=== PATIENT | male | born 1955 | race Caucasian/White ===

== ENCOUNTER 2019-05-02 07:33 | Inpatient (IN) | payer OTHER ==
[~2019-05-02] VITALS: Ht 188 cm; Wt 111.1 kg
[2019-05-02] VITALS (31 sets, daily range): BP systolic 94–189; BP diastolic 49–102
[~2019-05-02 07:33] MED LIST: ALLOPURINOL 10100 M1 PO; ASPIR 8181 MG PO; ATORVASTATIN CA40 MG PO; BRILINTA90 MG PO; MICARDIS40 MG PO; NAPROSYN500 MG PO; NORCO 5-325 TA1 EACH PO; PROTONIX40 M1 PO; TELMISARTAN-HC1 EACH PO
[2019-05-02 07:46] LABS: ABSOLUTE BASOPHILS 0.1 thou/uL (0.0-0.2); ABSOLUTE EOSINOPHILS 0.4 thou/uL (0.0-0.7); ABSOLUTE LYMPHOCYTES 2.1 thou/uL (0.8-5.3); ABSOLUTE MONOCYTES 0.8 thou/uL (0.0-1.2); ABSOLUTE NEUTROPHILS 3.5 thou/uL (1.6-8.1); BASOPHILS 1.2 %; EOSINOPHILS 5.1 %; HEMATOCRIT 42.1 % (42.0-52.0); HEMOGLOBIN 14.3 gm/dL (14.0-18.0); LYMPHOCYTES 30.9 %; MCH 31.3 pg (26.0-34.0); MONOCYTES 12.1 %; MPV 9.1 fl. (7.2-11.1); NUCLEATED RBCS 0 /100WBC; PLATELET COUNT* 179 thou/uL (150-400); POLYS 50.7 %; RBC 4.57 mil/uL (4.50-6.00); RDW-CV 13.5 % (10.5-14.5); WBC 6.9 thou/uL (4.0-11.0)
[2019-05-02 07:55] LABS: CALCIUM 8.8 mg/dL (8.5-10.1); CREATININE 1.2 mg/dL (0.6-1.3); POTASSIUM 4.1 mmol/L (3.5-5.1)
[2019-05-02 07:57] LABS: APTT 25.5 Seconds (25.0-31.3); PROTIME 10.5 Seconds (9.20-11.50)
[2019-05-02 08:04] LABS: TROPONIN-I LEVEL 0.33 ng/mL (<0.06)
--- NOTE | 2019-05-02 12:30 | NUR ---
RECEIVED PT FROM RETAIL SALES MANAGER AT 0930. PT SINUS OSORIO HEART RATE 47-[address] NOTIFIED. SYSTOLIC BP 90'S-105. NOTIFIED. RECEIVED ORDER TO INFUSE NS AT 200ML/HR IS SYSTOLIC <90. PT HAS NOT COMPLAINTS AT THIS TIME. A/O X'S 4. ADMISSION ASSESSMENT COMPLETE. PT'S SPOUSE RECEIVED PRINTED CARDIAC EDUCATION FROM RETAIL SALES MANAGER. POST CATH PROCEDURES INSTRUCTED TO PATIENT AND SPOUSE. PT TOLERATING LIQUIDS. TOLERATED HEART HEALTHY BREAKFAST. RECEIVED ORDERS TO INFUSE AGROSTAT FROM RETAIL SALES MANAGER UNTIL BAG IS EMPTY.
[2019-05-02] MEDS ORDERED: LIPITOR40 MG PO (13:18)
--- NOTE | 2019-05-02 14:26 | NUR ---
PT BLADDER SCANNED AND 535ML. PT STOOD UP TO VOID 2 TIMES AND UNABLE TO VOID. WATER TURNED ON, UNABLE TO VOID. PT STATES HE DID TAKE FLOMAX LAST NIGHT. CALLED, RECEIVED ORDER FOR UROLOGY CONSULT.
[2019-05-02] MEDS ORDERED: FLOMAX0.4 MG PO (15:01)
[2019-05-02] MEDS ORDERED: LOSARTAN-HCTZ1 EAC1 PO (15:05)
[2019-05-02] MEDS ORDERED: CRESTOR20 MG PO (15:06)
[2019-05-02] MEDS ORDERED: GARLIC PO (15:07)
[2019-05-02] MEDS ORDERED: VITAMIN E400 UNIT PO (15:08)
[2019-05-02] MEDS ORDERED: FISH OIL 1,001000 M2 PO (15:09)
--- NOTE | 2019-05-02 17:33 | CARD ---
[address] [address] CARDIAC CATH REPORT Name: LAI VILLEGAS Room: [address] IN .R.#: [id number] Admission: 05/02/19 Attend Phys: Casimiro Colunga MD, F Discharge: Date of : 53 Report #: [id number] THIS REPORT FOR: //name// APPROVED REPORT Study performed: 05/02/2019 07:49:16 Patient Details Patient Status: ED Room #: The patient is a 63 year-old male Event Personnel Casimiro Colunga Multicultural Internship, Mary Diamond RN Director School Of Nursing, Roger Moralez SURFACE MOUNT TECHNOLOGY OPERATOR Scrub, Teresa Josue RN Monitor, Sharon Brennan RN Director School Of Nursing Procedures Performed Art Access - R femoral artery* Left Heart Cath w/or w/o Coronaries [id number] [facility] Place w/wo Plasty Single RCA [id number] Indication STEMI (>0 to less than or equal to 6 hours), Chest pain Risk Factors Arterial Hypertension, Hypercholesterolemia Previous Procedures/Diagnoses Previous PCI Admission/Lab Medications/Medications given during procedure Glycoprotein IllbIlla Inhibitors, Heparin Unfract. Procedure Narrative The patient was brought emergently to the Cardiac Catheterization Laboratory and was prepped and draped in a sterile manner. The right femoral was infiltrated with 2% Lidocaine subcutaneous anesthesia. A 6fr Ultimum sheath was inserted into the right femoral artery. Coronary angiography was performed using coronary diagnostic catheters. The right coronary system was accessed and visualized with a Diagnostic catheter. The left coronary system was accessed and visualized with a Diagnostic catheter. The left ventricle was accessed and visualized with a Diagnostic catheter. Left ventricular/Aortic Valve gradient assessed via catheter pullback. Left ventriculogram was performed in SC[place] [address] CARDIAC CATH REPORT Name: LAI VILLEGAS Room: [address] IN [facility]#: [id number] Admission: 05/02/19 Attend Phys: Casimiro Colugna MD, F Discharge: Date of : 53 Report #: [id number] was deployed with a 6 Fr Angioseal STS 6Fr. The patient tolerated the procedure well and there were no complications associated with the procedure. There was no hematoma. Intraoperative Conscious Sedation Sedation start time: 8:31 Case end Time: 9:08 Fentanyl 25 mcg Fluoro Time: 8.0 minutes Dose: DAP 370559 cGycm2 1852 mGy Contrast Type and Amount: Visipaque 180 ml Coronary Angiography The patient's coronary anatomy is right dominant. Diagnostic Cath Left Main 0% stenosis LAD long stent in mid lad with 0% stenosis. 60% stenosis noted in distal lad. Diagonal 2 50% mid stenosis Circumflex 70% mid stenosis noted Right Coronary 30% proximal stenosis. 100% acutely occluded just beyond acute margin R PDA small vessel with 90% proximal stenosis noted Left Ventriculography The left ventricular ejection fraction is estimated to be 45-50%. Left ventricular wall motion abnormalities are present. There is 1+ mitral insufficiency. mild inferior wall hypokinesis noted Hemodynamics The aortic pressure is 149/76 mmHg with a mean of 92 mmHg. The left ventricular pressure is 89/15 mmHg with a mean of mmHg. The left ventricular end diastolic pressure is 25 mmHg. There was no gradient across the aortic valve upon pullback. Pullback from the left ventricle to the aorta revealed no gradient across the aortic valve. PCI Technique Lesion Anticoagulation was achieved with Heparin. bolus of iv aggrastat given Percutaneous coronary intervention was performed on the mid right coronary artery. The lesion stenosis prior to intervention was 100% with PITA 0 flow. A 6F JR 4.0 Guide Catheter was used to engage the rca ostium. A Choice PT Wire 182cm Interventional Guidewire was used [place] [address] CARDIAC CATH REPORT Name: LAI VILLEGAS Room: [address] IN [facility]#: [id number] Admission: 05/02/19 Attend Phys: Casimiro Colunga MD, F Discharge: Date of : 53 Report #: [id number] BALLOON DILATION A Balloon catheter Trek RX 2.5 X 8 was inserted and inflated up to 8.00atm for 14seconds. Repeat angiography revealed the following post-dilatation results: 60% stenosis. Additional Inflation: 16.00atm for 12seconds. Additional Inflation: 18.00atm for 9seconds. Inability to cross occlusion with neither a BMW nor prowater flex wire appearred to be secondary to large clot burden and tortuosity. STENT DEPLOYMENT A drug-eluting stent Brien RX Stent 3.5X38mm was inserted and inflated up to 18.00atm for 10seconds. Repeat angiography revealed the following post-stent deployment results: 0% stenosis. Additional Inflation: 10.00atm for 22seconds. Additional Inflation: 14.00atm for 17seconds. Final angiography reveals 0 % stenosis with PITA 3 flow. Conclusion 1. Patent stent in the mid lad 2. 70% stenosis of the mid circumflex 3. acute occlusion of the mid rca 4. LVEF 45-50% 5. successful placement of a drug eluting stent in the mid rca Recommendations Cardiac Rehabilitation Referral Aggressive Medical Therapy Medications Administered Prasugrel <ELECTRONICALLY SIGNED> By: Casimiro Colunga MD, FACC 05/02/19 1732 [id number] 1732Davidionne Colunga MD, FACC /INF
[2019-05-03] VITALS (25 sets, daily range): BP systolic 91–141; BP diastolic 54–83
[2019-05-03 04:52] LABS: HEMATOCRIT 37.3 % (42.0-52.0); HEMOGLOBIN 12.5 gm/dL (14.0-18.0); MCH 30.9 pg (26.0-34.0); MCHC 33.4 g/dL (28.0-37.0); MCV 92.5 fL (80.0-100.0); MPV 9.9 fl. (7.2-11.1); RBC 4.03 mil/uL (4.50-6.00); RDW-CV 13.5 % (10.5-14.5); WBC 8.2 thou/uL (4.0-11.0)
[2019-05-03 05:14] LABS: ALBUMIN 2.6 g/dL (3.4-5.0); ALKALINE PHOSPHATASE 48 U/L (46-116); ANION GAP 7 mmol/L (7-16); BUN 21 mg/dL (7-18); CALCIUM 8.1 mg/dL (8.5-10.1); CHLORIDE 106 mmol/L (98-107); CHOLESTEROL 95 mg/dL (<200); CO2 26 mmol/L (21-32); CREATININE 1.1 mg/dL (0.6-1.3); GLUCOSE 99 mg/dL (70-99); HDL CHOLESTEROL 27 mg/dL (>40); LDL CHOLESTEROL 45 mg/dL (<100); POTASSIUM 3.8 mmol/L (3.5-5.1); SGOT 278 U/L (15-37); SGPT 75 U/L (30-65); SODIUM 139 mmol/L (136-145); TC:HDL 3.5 Ratio (Not establshd); TOTAL BILIRUBIN 0.5 mg/dL (<0.1-1.0); TOTAL PROTEIN 5.9 g/dL (6.4-8.2); TRIGLYCERIDE 116 mg/dL (<150); VLDL 23 mg/dL (<40)
[2019-05-03 05:16] LABS: SERUM ASSESSMENT CLEAR
--- NOTE | 2019-05-03 06:19 | NUR ---
ASSESSMENTS CHARTED. VSS. PATIENT PASSED 1 LARGE BOWEL MOVEMENT DURING SHIFT. PATIENT REMAINS ON RA, IN SINUS RHYTHM. PATIENT DID EXPERIENCE 3 SEPARATE RUNS OF V TACH DURING SHIFT AND CONVERTED OUT OF THEM. 2 RUNS OF 3 BEAT AND 1 RUN OF 6 BEAT. PATIENT DENIED FEELING ANY DIFFERENT AND HAS NOT HAD ANY MORE EPISODES OF V TACH. WILL CONTINUE TO MONITOR.
[2019-05-03 06:22] LABS: TROPONIN-I LEVEL 117.93 ng/mL (<0.06)
[2019-05-03] MEDS ORDERED: INDOMETHACIN 5050 M1 PO (14:26)
[2019-05-03] MEDS ORDERED: NITROGLYCERIN0.4 MG SUBLING (14:26)
--- NOTE | 2019-05-03 16:54 | NUR ---
PATIENT AOX4, CALM, COOPERATIVE THROUGHOUT SHIFT. DOWNGRADED TO TELEMETRY STATUS. DENIES CHEST PAIN THROUGHOUT SHIFT. DOES STATE HE HAS SOME RIGHT UPPER QUADRANT ABDOMINAL "ACHING". DOES NOT RATE. PATIENT SPOKE WITH COMPUTER NETWORK SPECIALIST ABOUT IT WHO STATED PATIENT NEEDS TO SEE HIS PCP. PATIENT'S HILL CATHETER REMAINS IN PLACE. WILL REMOVE AT 0600 FOR VOIDING TRIAL PRIOR TO POSSIBLE DISCHARGE TOMORROW, SO UROLOGY IS ABLE TO REPLACE IN NECESSARY. PATIENT AND UPDATED ON THIS.
--- NOTE | 2019-05-03 18:50 | NUR ---
PT ARRIVED TO UNIT AT APPROX 1850 VIA WHEELCHAIR, AT BEDSIDE. ANIMAL PATHOLOGIST PLACED ON PT, TRACING SINUS RHYTHM, VSS, RA, DENIES ANY PAIN OR SOA AT THIS TIME. CALL LIGHT IN REACH, PT ORIENTED TO CALL LIGHT AND ROOM.
[2019-05-04 00:39] VITALS: BP 105/69
[2019-05-04 04:00] VITALS: BP 118/74
--- NOTE | 2019-05-04 04:03 | NUR ---
[facility] IS AWAKE AND ORIENTED X4. VSS ON ROOM AIR. PT DENIES CHEST PAIN/ DISCOMFORT. RN RADIATION ONCOLOGY IN PLACE TRACING SR/SB. ASSESSMENT DONE AND CHARTED. PT IS ABLE TO SLEEP MOST OF THE NIGHT. CALL LIGHT WITHIN REACH. HOURLY ROUNDING DONE FOR PT SAFETY. WILL CONTINUE TO MONITOR PT.
--- NOTE | 2019-05-04 07:37 | NUR ---
REMOVED URINARY CATHETER AR APPROX 0600. PT WAS ABLE TO VOID A LITTLE POST REMOVAL. WCTM. BEDSIDE REPORT GIVEN TO STEPHANIE SCHWARTZ.
[2019-05-04 11:46] VITALS: BP 121/74
--- NOTE | 2019-05-04 12:53 | H ---
[place] [address] HISTORY AND PHYSICAL Name: LAI VILLEGAS Loni Room: [address] IN M.R.#: [id number] Admission: 05/02/19 Attend Phys: Casimiro Colunga MD, F Discharge: Date of : 53 Report #: [id number] THIS REPORT FOR: //name// CC: Milton Valenzuela DATE OF SERVICE: 05/02/2019 CRITICAL CARE NOTE HISTORY OF PRESENT ILLNESS: The patient is a 63-year-old white male who I was asked to see in the Emergency Room after he complained of chest pain. The history is obtained from the patient. No old records are available. He states he has a long history of hypertension and hyperlipidemia. Because of risk factors for coronary artery disease, he apparently underwent stress test in the past, it was abnormal. He underwent a cardiac catheterization at [facility] in [place], [place] from the right radial artery in November 2016. He apparently had 2 stents placed in his LAD. He was on Brilinta for a period of time. He stays fairly active. Denies any recent chest pain, shortness of breath, palpitations, syncope, fever, bleeding. He apparently has been followed recently by Dr. Jones, a bioinformatics analyst at [facility] because of insurance purposes. He apparently had a stress test earlier this year. On the day of admission, however, he notes the onset of chest discomfort about 6:15 in the morning. He became diaphoretic, but denies significant shortness of breath. There is no radiation of the pain. Denied any significant nausea. He took a nitroglycerin that seemed to help somewhat depressed. However, because of persistent pain, he called an ambulance and was found to be having an acute inferior STEMI. He was brought by ambulance to [facility] and I was asked to see him on an emergent basis. On my arrival, he continued to have chest discomfort. PAST MEDICAL HISTORY: Significant for appendectomy, hernia repair, knee surgery, shoulder surgery, hypertension, hyperlipidemia, gout. MEDICATIONS: Consist of losartan 1 tablet a day, allopurinol 100 mg 3 times a day, aspirin 81 mg a day. He is on fish oil, Protonix, Crestor 20 mg a day, Flomax 0.4 mg a day for prostatism, aspirin one a day. ALLERGIES: HE HAS PREVIOUS INTOLERANCE TO PENICILLIN. FAMILY HISTORY: His brother had coronary artery bypass surgery. SOCIAL HISTORY: He is . 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 He and his live in [place], [place]. No smoking. [place] [address] HISTORY AND PHYSICAL Name: BAKARILAI Ivey Room: [address] IN .R.#: [id number] Admission: 05/02/19 Attend Phys: Casimiro Colunga MD, F Discharge: Date of : 53 Report #: [id number] REVIEW OF SYSTEMS: He has had no history of stroke, asthma, peptic ulcer disease, liver disease, kidney disease, cancer, chronic skin condition, psychiatric illness. PHYSICAL EXAMINATION: GENERAL: Revealed a middle-aged male who appeared in mild distress because of his chest pain. VITAL SIGNS: He had a blood pressure of 110/60, pulse is 60. He is afebrile. HEENT: He is anicteric. Conjunctivae pink. Mucous members moist. NECK: Veins do not appear distended. No carotid bruits. Neck supple. CHEST: Clear to auscultation. CARDIOVASCULAR: Regular rate and rhythm without murmur. ABDOMEN: Soft. EXTREMITIES: Had no edema. Posterior tibial pulse 2+ bilaterally. SKIN: Warm, dry. NEUROLOGIC: Nonfocal. LYMPH: No adenopathy. MUSCULOSKELETAL: No joint effusion. PSYCHIATRIC: Mood is appropriate. DIAGNOSTIC DATA: His ECG showed a sinus rhythm with ST segment elevation in II, III, aVF consistent with an acute inferior STEMI. Chest x-ray; normal heart size, clear lung gaxiola. LABORATORY DATA: On admission, sodium 140, potassium 4.1, BUN 31, creatinine 1.2, glucose 121. His troponin on admission is 0.33. White blood cell count 6.9, hemoglobin 14.3, hematocrit 42.1. IMPRESSION AND RECOMMENDATIONS: 1. Acute inferior ST-elevation myocardial infarction. Recommend urgent cardiac catheterization. 2. Previous stenting of the left anterior descending. The patient does take an aspirin a day. 3. Hypertension. The patient is on an ARB. 4. Hyperlipidemia. The patient is on a statin drug. 5. Prostatism. The patient is on Flomax. TIME SPENT: From 7:45 a.m. to 9:30 a.m. <ELECTRONICALLY SIGNED> By: Casimiro Colunga MD, FACC 05/04/19 1253 1720 1947Casimiro Colunga MD, FAC /nt
[2019-05-04] MEDS ORDERED: EFFIENT10 MG PO (14:08)
[2019-05-04] MEDS ORDERED: TOPROL XL25 MG PO (14:10)
[2019-05-04 14:11] VITALS: BP 121/74
[2019-05-04 15:22] VITALS: BP 121/74
--- NOTE | 2019-05-04 16:52 | EKG ---
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: : 1955 Requested By: Edith Spann Order Number: [id number] MD: Freddy Klein Measurements Intervals [place] Rate: 60 P: 1 ND: 173 QRS: 77 QRSD: 95 T: 97 QT: 390 QTc: 390 Interpretive Statements Sinus rhythm Inferoposterior infarct, acute (RCA) Probable RV involvement, suggest recording right precordial leads No previous ECG available for comparison Electronically Signed On 05-04-2019 16:51:44 CDT by Freddy Klein [email or web address] <ELECTRONICALLY SIGNED> By: Freddy Klein MD, FACC 05/04/19 1651 0732 Freddy Klein MD, [facility] /EPI
--- NOTE | 2019-05-04 16:52 | EKG ---
[place] [address] ELECTROCARDIOGRAM REPORT Name: LAI VILLEGAS Room: [address] DIS IN M.R.#: [id number] Admission: 05/02/19 Attend Phys: Casimiro Colunga MD, F Discharge: 05/04/19 Date of : 53 Report #: [id number] THIS REPORT FOR: //name// [facility] Test Date: 2019-05-02 Test Time: 09:55:26 Pat Name: LAI VILLEGAS Department: Room: [address] Gender: M Chief School Finance Officer: [facility] : 1955 Requested By: Casimiro Colunga Order Number: [id number] Khushbu MD: Freddy Klein Measurements Intervals [place] Rate: 50 P: 15 PA: 169 QRS: 75 QRSD: 97 T: 103 QT: 433 QTc: 395 Interpretive Statements Sinus rhythm Inferior infarct, acute (RCA) Lateral leads are also involved Probable RV involvement, suggest recording right precordial leads No previous ECG available for comparison Electronically Signed On 05-04-2019 16:52:26 CDT by Freddy Klein [email or web address] <ELECTRONICALLY SIGNED> By: Freddy Klein MD, FACC 05/04/19 1652 0955 [id number] Freddy Klein MD, [facility] /EPI
--- NOTE | 2019-05-04 16:58 | EKG ---
[place] [address] ELECTROCARDIOGRAM REPORT Name: LAI VILLEGAS Room: [address] DIS IN M.R.#: [id number] Admission: 05/02/19 Attend Phys: Casimiro Colunga MD, F Discharge: 05/04/19 Date of : 53 Report #: [id number] THIS REPORT FOR: //name// [facility] Test Date: 2019-05-03 Test Time: 08:56:54 Pat Name: LAI VILLEGAS Department: Room: [facility] Gender: M Datacap Developer: MADAN : 1955 Requested By: Casimiro Colunga Order Number: [id number] Khushbu MD: Freddy Klein Measurements Intervals [place] Rate: 67 P: 2 HI: 161 QRS: -41 QRSD: 86 T: -76 QT: 451 QTc: 476 Interpretive Statements Sinus rhythm Abnormal R-wave progression, early transition Inferior infarct, age indeterminate No previous ECG available for comparison Electronically Signed On 05-04-2019 16:58:29 CDT by Freddy Klein [email or web address] <ELECTRONICALLY SIGNED> By: Freddy Klein MD, [facility] 05/04/19 1658 0856 0856 Freddy Klein MD, [facility] /EPI
== END 2019-05-04 15:44 | disposition home or self-care (01) | DRG 246 ==
LOC: M.ERS 07:33 → M.CL 07:33 → M.ERS 08:16 → M.TBA-CV 09:02 → M.2W 09:02 → M.ICU 09:02 → M.2W 05-03 18:45
PROVIDERS: Personal Emergency Response Attendant; ADMIT Internal Medicine Cardiovascular Disease
PROC: 4A023N7 Measurement of Cardiac Sampling and Pressure, Left Heart, Percutaneous Approach (ICD-10-PCS; principal; 2019-05-02)
PROC: 027034Z Dilation of Coronary Artery, One Artery with Drug-eluting Intraluminal Device, Percutaneous Approach (ICD-10-PCS; 2019-05-02)
PROC: B2111ZZ Fluoroscopy of Multiple Coronary Arteries using Low Osmolar Contrast (ICD-10-PCS; 2019-05-02)
PROC: B2151ZZ Fluoroscopy of Left Heart using Low Osmolar Contrast (ICD-10-PCS; 2019-05-02)
DX: I21.19 ST elevation (STEMI) myocardial infarction involving other coronary artery of inferior wall (principal); I50.33 Acute on chronic diastolic (congestive) heart failure; E78.5 Hyperlipidemia, unspecified; M10.9 Gout, unspecified; N40.1 Benign prostatic hyperplasia with lower urinary tract symptoms; R33.8 Other retention of urine; I25.5 Ischemic cardiomyopathy; I95.9 Hypotension, unspecified; I25.10 Atherosclerotic heart disease of native coronary artery without angina pectoris; I10 Essential (primary) hypertension; Z95.5 Presence of coronary angioplasty implant and graft; Z90.89 Acquired absence of other organs; Z79.82 Long term (current) use of aspirin; Z79.899 Other long term (current) drug therapy; Z88.0 Allergy status to penicillin; Z82.49 Family history of ischemic heart disease and other diseases of the circulatory system; Z98.49 Cataract extraction status, unspecified eye

== ENCOUNTER 2019-08-29 10:30 | Emergency (ER) | payer MEDICARE, OTHER ==
[~2019-08-29] VITALS: Ht 188 cm; Wt 104.3 kg
[~2019-08-29 10:30] MED LIST changes: +CRESTOR20 MG PO; +EFFIENT10 MG PO; +FISH OIL 1,001000 M2 PO; +FLOMAX0.4 MG PO; +GARLIC PO; +INDOMETHACIN 5050 M1 PO; +LIPITOR40 MG PO; +LOSARTAN-HCTZ1 EAC1 PO; +NITROGLYCERIN0.4 MG SUBLING; +TOPROL XL25 MG PO; +VITAMIN E400 UNIT PO
[2019-08-29 10:35] VITALS: BP 139/79
== END 2019-08-29 11:04 | disposition home or self-care (01) ==
LOC: M.ERS 10:30
DX: S80.12XA Contusion of left lower leg, initial encounter (principal); I10 Essential (primary) hypertension; E78.5 Hyperlipidemia, unspecified; M10.9 Gout, unspecified; Z90.49 Acquired absence of other specified parts of digestive tract; Z95.5 Presence of coronary angioplasty implant and graft; Z88.0 Allergy status to penicillin; X58.XXXA Exposure to other specified factors, initial encounter; Y93.89 Activity, other specified; Y92.89 Other specified places as the place of occurrence of the external cause; Y99.8 Other external cause status